=== PATIENT | female | born 1975 | race Caucasian/White ===

== ENCOUNTER 2016-12-07 06:50 | Emergency (ER) | payer MEDICAID, OTHER ==
[~2016-12-07 06:50] MED LIST: CYCL-36 PO; LORT5TAB PO; Z.0.NO CURRENT MEDS
[2016-12-07 06:51] VITALS: BP 177/95; PULSE 82; RESP 16; TEMP 98.7; O2SAT 96
--- NOTE | 2016-12-07 07:14 | PD ---
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 comes to ed with low back pain, denies any urinary/fecal incontinence, denies fever/n/ v/d/abd pain but does state a left flank like pain radiating towards groin area/ suprapubic area. PFSH Past Medical History Diminished Hearing: No Musculoskeletal: Yes (HX DEGENERATIVE DISC DISEASE) ?: Not Menopausal: Yes Past Surgical History Abdominal Surgery: Yes (C SECTION) Section: Yes (X1) Cholecystectomy: Yes Hysterectomy: Yes Social History Alcohol Use: No Tobacco Use: Yes (1/2 PPD) Substance Use: No Allergies-Medications (Allergen,Severity, Reaction): Coded Allergies: No Known Allergies (Verified , 12/07/16) Reported Meds & Prescriptions Reported Meds & Active Scripts Active No Active Prescriptions or Reported Medications Review of Systems Except as stated in HPI: all other systems reviewed are Neg Musculoskeletal: Positive: Pain (low back pain) Physical Exam Narrative GENERAL: SKIN: Warm and dry. HEAD: Atraumatic. Normocephalic. EYES: Pupils equal and round. No scleral icterus. No injection or drainage. ENT: No nasal bleeding or discharge. Mucous membranes pink and moist. NECK: Trachea midline. No JVD. CARDIOVASCULAR: Regular rate and rhythm. RESPIRATORY: No accessory muscle use. Clear to auscultation. Breath sounds equal bilaterally. GASTROINTESTINAL: Abdomen soft, non-tender, nondistended. Hepatic and splenic margins not palpable. MUSCULOSKELETAL: Extremities without clubbing, cyanosis, or edema. No obvious deformities.LOW BACK PAIN WITH SOME LATERAL PARASPINAL SPASMS, BUT NO MIDLINE TTP NEUROLOGICAL: Awake and alert. No obvious cranial nerve deficits. Motor grossly within normal limits. Five out of 5 muscle strength in the arms and legs. Normal speech. PSYCHIATRIC: Appropriate mood and affect; insight and judgment normal. Data Data Last Documented VS Vital Signs Date Time Temp Pulse Resp B/P Pulse Ox O2 Delivery O2 Flow Rate FiO2 12/07/16 06:51 98.7 82 16 177/95 96 Room Air Orders Urinalysis - C+S If Indicated (12/07/16 07:08) Ct Abd/Pel W/O Iv Contrast (12/07/16 07:08) Ed Urine Pregnancytest Poc (12/07/16 07:08) Drug Screen, Random Urine (12/07/16 07:08) Ondansetron Odt (Zofran Odt) (12/07/16 07:15) Nalbuphine Inj (Nubain Inj) (12/07/16 07:15) Labs Laboratory Tests Test 12/07/16 07:15 Urine Color YELLOW Urine Turbidity HAZY Urine pH 5.5 Urine Specific [place] 1.029 Urine Protein 30 mg/dL Urine Glucose (UA) NEG mg/dL Urine Ketones NEG mg/dL Urine Occult Blood NEG Urine Nitrite NEG Urine Bilirubin NEG Urine Urobilinogen 2.0 MG/DL Urine Leukocyte Esterase SMALL Urine RBC 1 /hpf Urine WBC 3 /hpf Urine Squamous Epithelial 5 /hpf Cells Urine Bacteria RARE /hpf Urine Hyaline Casts 9 /lpf Urine Granular Casts 1 /lpf Urine Mucus MOD /lpf Microscopic Urinalysis Comment CULT NOT INDICATED Urine Opiates Screen NEG Urine Barbiturates Screen NEG Urine Amphetamines Screen NEG Urine Benzodiazepines Screen NEG Urine Cocaine Screen NEG Urine Cannabinoids Screen NEG MDM Medical Decision Making Medical Screen Exam Complete: Yes Emergency Medical Condition: Yes Medical Record Reviewed: Yes Differential Diagnosis UTI/PYELO/RENAL STONE/DIVERTIC/ VS BACK SPASM Narrative Course PATIENT IMPROVED PAIN AFTER STADOL/ZOFRAN, CT A/P SHOWS Diagnosis Primary Impression: Low back pain Qualified Code: M54.5 - Chronic low back pain without sciatica, unspecified back pain laterality Med/Other Pt SpecificInfo: Prescription(s) given Scripts Codeine-Acetaminophen 30-300 mg Tab1 Tab PO Q4H PRN (PAIN) #20 TAB Prov:Shorty Currie MD 12/07/16 Cyclobenzaprine (Flexeril)10 Mg Tab10 Mg PO TID #21 TAB Prov:Shorty Currie MD 12/07/16 Disposition: 01 DISCHARGE HOME Condition: Stable Shorty Currie MD Dec 07, 2016 07:14
[2016-12-07] MEDS ORDERED: NALBUPHINE HCL 20 MG/ML AMP IM ONE (07:15)
[2016-12-07] MEDS ORDERED: ONDANSETRON ODT 4 MG TAB PO ONE (07:15)
[2016-12-07 07:27] LABS: BACTERIA, URINE RARE /hpf; BLOOD, URINE NEG (NEG); GLUCOSE,URINE NEG (NEG); GRANULAR CAST, URINE 1 /lpf; HYALINE CAST, URINE 9 /lpf (RARE); KETONE, URINE NEG (NEG); MUCUS URINE MOD /lpf (OCC); NITRITE,URINE NEG (NEG); PH, URINE 5.5 (5.0-8.5); SQUAMOUS EPITHELIAL CELL URINE 5 /hpf (0-5); URINE COLOR YELLOW (YELLW/STRAW)
[2016-12-07 07:30] LABS: COMMENT (UR) CULT NOT INDICATED; CULTURE IF INDICATED CULT NOT INDICATED
[2016-12-07 07:32] LABS: AMPHETAMINE, URINE NEG (NEG); BARBITURATES, URINE NEG (NEG); COCAINE, URINE NEG (NEG)
--- NOTE | 2016-12-07 07:48 | RADRPT ---
EXAM DATE/TIME: 12/07/2016 07:30 [facility] COMPARISON: No previous studies available for comparison. INDICATIONS : Complaining of back pain. ORAL CONTRAST: No oral contrast ingested. RADIATION DOSE: 8.54 CTDIvol (mGy) MEDICAL HISTORY : Back pain SURGICAL HISTORY : Hysterectomy. Cholecystectomy. ENCOUNTER: Initial ACUITY: 1 day PAIN SCALE: 6/10 LOCATION: Bilateral lower back TECHNIQUE: Volumetric scanning of the abdomen and pelvis was performed. Using automated exposure control and ad justment of the mA and/or kV according to patient size, radiation dose was kept as low as reasonably achievable to obtain optimal diagnostic quality images. FINDINGS: Lung bases are clear. There is hepatomegaly with liver measuring 23.8 cm in length. Fatty infiltratio n of the liver. Spleen, adrenals, kidneys and pancreas unremarkable. Previous cholecystectomy. Minima l fat stranding of the mesentery, nonspecific but can indicate mild mesenteric inflammatory changes. No free air or free fluid. No bowel obstruction. No acute bony abnormalities. Mild degenerative disc disease of the lumbar spine. CONCLUSION: 1. Fatty infiltration of the liver which is enlarged to 23.8 cm. 2. There is mild nonspecific stranding of fat in the mesentery. Differential diagnosis includes a mil d mesenteritis. 3. Previous cholecystectomy. No biliary ductal dilatation. No other acute findings within the abdomen or pelvis. Wali Hernández MD on December 07, 2016 at 7:37 Board Certified Radiologist. This report was verified electronically.
[2016-12-07] MEDS ORDERED: CYCL1TAB29 PO (07:55)
[2016-12-07] MEDS ORDERED: CODE30TA2 PO (07:55)
[2016-12-07] MEDS ORDERED: ORPHENADRINE INJ 60 MG/2 ML AMP IM ONE (08:00)
[2016-12-07] MEDS ORDERED: KETOROLAC TROMETHAMINE 60 MG/2 ML (IM) VIAL IM ONE (08:00)
== END 2016-12-07 08:20 | disposition home or self-care (01) ==
LOC: NEPC 06:50
DX: M54.5 Low back pain (principal); K76.0 Fatty (change of) liver, not elsewhere classified; F17.200 Nicotine dependence, unspecified, uncomplicated
CPT/HCPCS: 74176; 80307; 81001; 84703; 96372; 99285; J1885; J2360

== ENCOUNTER 2016-12-09 13:59 | Emergency (ER) | payer SELFPAY ==
[~2016-12-09] VITALS: Ht 157.5 cm; Wt 100.0 kg
[~2016-12-09 13:59] MED LIST changes: +CODE30TA2 PO; -CYCL-36 PO; +CYCL1TAB29 PO; -LORT5TAB PO; -Z.0.NO CURRENT MEDS
[2016-12-09 14:01] VITALS: BP 141/102; PULSE 88; RESP 19; TEMP 98; O2SAT 99
--- NOTE | 2016-12-09 15:04 | PD ---
HPI Chief Complaint: Back/ Neck Pain or Injury Time Seen by Provider: 15:03 Travel History International Travel<30 days: No Contact w/Intl Traveler<30days: No Traveled to known affect area: No History of Present Illness HPI 41-year-old female presents to emergency Department with complaint of mid and left lower back pain since Thursday. Was seen here on Thursday with the same complaint. Pain does radiate down the back of left buttocks and thigh. Returns saying that pain is worsened. Denies history of back pain. Denies injury. Says she had incontinence of stool on Thursday prior to arrival to the ER and had to go home and clean herself up before coming back to be evaluated. She states that she did not mention this incident to the doctor. Denies further incontinence of stool or urine. She is also complaining of "a little "numbness/tingling in her genital area. Denies IV drug use or cancer. Denies fever, vomiting. Denies paresthesias, loss of sensation, decreased range of motion, decreased strength to all extremities. Has been taking Tylenol with codeine as prescribed with no relief back pain. Was unable to fill the Flexeril due to finances. Pain is worse with movement. History of hysterectomy. No known allergies. Has no other medical complaints. No other modifying factors or associated signs and symptoms. PFSH Past Medical History Diminished Hearing: No Musculoskeletal: Yes (HX DEGENERATIVE DISC DISEASE) ?: Not Menopausal: Yes Past Surgical History Abdominal Surgery: Yes (C SECTION) Section: Yes (X1) Cholecystectomy: Yes Hysterectomy: Yes Social History Alcohol Use: No Tobacco Use: Yes (1/2 PPD) Substance Use: No Allergies-Medications (Allergen,Severity, Reaction): Coded Allergies: No Known Allergies (Verified , 12/09/16) Reported Meds & Prescriptions Reported Meds & Active Scripts Active Codeine-Acetaminophen 30-300 mg Tab 1 Tab PO Q4H PRN Flexeril (Cyclobenzaprine HCl) 10 Mg Tab 10 Mg PO TID Review of Systems Except as stated in HPI: all other systems reviewed are Neg Physical Exam Narrative GENERAL: Well-nourished, well-developed female patient, in no acute distress; afebrile, nontoxic-appearing SKIN: Warm and dry. HEAD: Atraumatic. Normocephalic. EYES: Pupils equal and round. No scleral icterus. No injection or drainage. ENT: Mucosa pink and moist. Airway patent. NECK: Trachea midline. CARDIOVASCULAR: Regular rate. RESPIRATORY: No accessory muscle use. GASTROINTESTINAL: Rounded. RECTUM: Rectal tone normal. MUSCULOSKELETAL: Bilateral lower extremities supple and non-tense with 2+ pedal pulses and sensory intact; with full range of motion and 5/5 strength. 2 + DTRs bilaterally. Active dorsiflexion and extension of bilateral feet. Bilateral straight leg raise is negative for low back pain. Ambulatory in room with with guarded gait the left lower extremity. Sitting up in bed at 90. No obvious deformities. No clubbing. No cyanosis. No edema. BACK: Midline point tenderness on palpation of the lumbar spine. Tenderness on palpation of left lumbar iliosacral area. No obvious deformities. NEUROLOGICAL: Awake and alert. Oriented 3. No obvious cranial nerve deficits. Motor grossly within normal limits. Normal speech. Moves all extremities. 5/5 strength to all extremities. Sensory intact. PSYCHIATRIC: Appropriate mood and affect; insight and judgment normal. Data Data Last Documented VS Vital Signs Date Time Temp Pulse Resp B/P Pulse Ox O2 Delivery O2 Flow Rate FiO2 12/09/16 17:31 63 19 112/72 98 Room Air 12/09/16 14:01 98.0 Orders Complete Blood Count With Diff (12/09/16 15:17) Comprehensive Metabolic Panel (12/09/16 15:17) Prothrombin Time / Inr (Pt) (12/09/16 15:17) Act Partial Throm Time (Ptt) (12/09/16 15:17) Iv Access Insert/Monitor (12/09/16 15:17) Sodium Chloride 0.9% Flush (Ns Flush) (12/09/16 15:30) Urinalysis - C+S If Indicated (12/09/16 15:17) Ed Urine Pregnancytest Poc (12/09/16 15:17) Westergren Sedimentation Rate (12/09/16 15:22) Ketorolac Inj (Toradol Inj) (12/09/16 16:15) Mri C Spine W/O Contrast (12/09/16 ) Mri L Spine W/O Contrast (12/09/16 ) Mri T Spine W/O Contrast (12/09/16 ) Labs Laboratory Tests Test 12/09/16 15:30 White Blood Count 10.1 TH/MM3 Red Blood Count 5.01 MIL/MM3 Hemoglobin 15.4 GM/DL Hematocrit 44.3 % Mean Corpuscular Volume 88.5 FL Mean Corpuscular Hemoglobin 30.7 PG Mean Corpuscular Hemoglobin 34.7 % Concent Red Cell Distribution Width 13.2 % Platelet Count 287 TH/MM3 Mean Platelet Volume 9.3 FL Neutrophils (%) (Auto) 61.7 % Lymphocytes (%) (Auto) 31.0 % Monocytes (%) (Auto) 5.8 % Eosinophils (%) (Auto) 1.1 % Basophils (%) (Auto) 0.4 % Neutrophils # (Auto) 6.2 TH/MM3 Lymphocytes # (Auto) 3.1 TH/MM3 Monocytes # (Auto) 0.6 TH/MM3 Eosinophils # (Auto) 0.1 TH/MM3 Basophils # (Auto) 0.0 TH/MM3 CBC Comment DIFF FINAL Differential Comment Prothrombin Time 10.0 SEC Prothromb Time International 0.9 RATIO Ratio Activated Partial 26.0 SEC Thromboplast Time Urine Color YELLOW Urine Turbidity HAZY Urine pH 5.0 Urine Specific [place] 1.024 Urine Protein TRACE mg/dL Urine Glucose (UA) NEG mg/dL Urine Ketones NEG mg/dL Urine Occult Blood TRACE Urine Nitrite NEG Urine Bilirubin NEG Urine Urobilinogen LESS THAN 2.0 MG/DL Urine Leukocyte Esterase MOD Urine RBC 2 /hpf Urine WBC 6 /hpf Urine Squamous Epithelial 5 /hpf Cells Urine Mucus FEW /lpf Microscopic Urinalysis Comment CULT NOT INDICATED Sodium Level 141 MEQ/L Potassium Level 4.2 MEQ/L Chloride Level 106 MEQ/L Carbon Dioxide Level 27.8 MEQ/L Anion Gap 7 MEQ/L Blood Urea Nitrogen 19 MG/DL Creatinine 1.06 MG/DL Estimat Glomerular Filtration 57 ML/MIN Rate Random Glucose 84 MG/DL Calcium Level 9.1 MG/DL Total Bilirubin 0.3 MG/DL Aspartate Amino Transf 41 U/L (AST/SGOT) Alanine Aminotransferase 68 U/L (ALT/SGPT) Alkaline Phosphatase 81 U/L Total Protein 8.0 GM/DL Albumin 3.9 GM/DL [facility] Medical Decision Making Medical Screen Exam Complete: Yes Emergency Medical Condition: Yes Medical Record Reviewed: Yes Differential Diagnosis Cord compression, spinal abscess, sciatica Narrative Course 41-year-old female with mid and left-sided low back pain since Thursday. Denies injury. Patient was examined here at [facility] on Thursday and had a CT of her abdomen and urinalysis were unremarkable for acute findings. Patient returns today with complaint of worsening of back pain. She does report having incontinence of stool on Thursday prior to arrival to the ER but did not discuss this with the doctor at that time. She has not had any further incontinence of stool or urine. She reports saddle anesthesias. Patient does have midline tenderness on palpation of the lumbar spine. She is afebrile and nontoxic- appearing. Denies fever, vomiting. Denies IV drug use or cancer. Patient is ambulatory in the room with a guarded gait the left lower extremity. I discussed the patient with Dr. frank, my attending physician, and he recommended CBC, CMP, sedimentation rate, coags and MRI of the spine. Orders are entered including urinalysis and urine . Patient will be transferred to a medical bed for further treatment and evaluation. Report will be given to alternate provider. See their note for patient disposition. 1715: Report given to Dr. Mills. See his note for final disposition. Lilly Zhang Dec 09, 2016 15:04
[2016-12-09] MEDS ORDERED: SODIUM CHLORIDE 0.9% FLUSH 10 ML FLUSH IV FLUSH PRN (15:30)
[2016-12-09 16:04] LABS: AUTOMATED NEUTROPHIL # 6.2 TH/MM3 (1.8-7.7); BASOPHIL % 0.4 % (0.0-2.0); EOSINOPHIL # 0.1 TH/MM3 (0-0.4); EOSINOPHIL % 1.1 % (0.0-4.0); HEMATOCRIT 44.3 % (35.0-46.0); HEMO FLAGS DIFF FINAL; LYMPHOCYTE # 3.1 TH/MM3 (1.0-4.8); MEAN CELL VOLUME 88.5 FL (80.0-100.0); MEAN CORPUSCULAR HEMOGLOBIN 30.7 PG (27.0-34.0); MEAN CORPUSCULAR HGB CONC 34.7 % (32.0-36.0); MONO % 5.8 % (0.0-8.0); NEUT % 61.7 % (16.0-70.0); PLATELET COUNT 287 TH/MM3 (150-450); RED BLOOD COUNT 5.01 MIL/MM3 (4.00-5.30); RED CELL DISTRIBUTION WIDTH 13.2 % (11.6-17.2); WHITE BLOOD COUNT 10.1 TH/MM3 (4.0-11.0)
[2016-12-09 16:10] LABS: BLOOD, URINE TRACE (NEG); COMMENT (UR) CULT NOT INDICATED; CULTURE IF INDICATED CULT NOT INDICATED; GLUCOSE,URINE NEG (NEG); KETONE, URINE NEG (NEG); MUCUS URINE FEW /lpf (OCC); NITRITE,URINE NEG (NEG); SQUAMOUS EPITHELIAL CELL URINE 5 /hpf (0-5); URINE COLOR YELLOW (YELLW/STRAW)
[2016-12-09] MEDS ORDERED: KETOROLAC TROMETHAMINE 30 MG/ML (IVP) VIAL IV PUSH ONE (16:15)
[2016-12-09 16:22] LABS: ALT (GPT) 68 U/L (10-53); ANION GAP 7 MEQ/L (5-15); AST (GOT) 41 U/L (15-37); BICARBONATE 27.8 MEQ/L (21.0-32.0); BLOOD UREA NITROGEN 19 MG/DL (7-18); CHLORIDE 106 MEQ/L (98-107); GLOMERULAR FILTRATION RATE 57 ML/MIN (>89); POTASSIUM 4.2 MEQ/L (3.5-5.1); SODIUM (NA) 141 MEQ/L (136-145)
[2016-12-09 16:25] LABS: ALKALINE PHOSPHATASE 81 U/L (45-117); TOTAL BILIRUBIN ADULT 0.3 MG/DL (0.2-1.0)
[2016-12-09 16:28] LABS: INTERNATIONAL NORMALIZED RATIO 0.9 RATIO
[2016-12-09 17:31] VITALS: BP 112/72; PULSE 63; RESP 19; O2SAT 98
--- NOTE | 2016-12-09 18:24 | RADRPT ---
EXAM DATE/TIME: 12/09/2016 17:46 [facility] COMPARISON: No previous studies available for comparison. INDICATIONS : Left flank pain with left leg pain. MEDICAL HISTORY : None. SURGICAL HISTORY : Hysterectomy. Cholecystectomy. section. ENCOUNTER: Initial ACUITY: 4-6 days PAIN SCORE: 6/10 LOCATION: Left back. TECHNIQUE: Multiplanar multisequence MRI of the thoracic spine was performed. FINDINGS: VERTEBRA: Normal vertebral body height. Homogeneous marrow signal. ALIGNMENT: Normal. CORD: Normal position and configuration. T1-T2: Normal. T2-T3: The thecal sac has a normal diameter. No evidence of disc bulge or protrusion. T3-T4: The thecal sac has a normal diameter. No evidence of disc bulge or protrusion. T4-T5: The thecal sac has a normal diameter. No evidence of disc bulge or protrusion. T5-T6: The thecal sac has a normal diameter. No evidence of disc bulge or protrusion. T6-T7: The thecal sac has a normal diameter. No evidence of disc bulge or protrusion. T7-T8: The thecal sac has a normal diameter. No evidence of disc bulge or protrusion. T8-T9: The thecal sac has a normal diameter. No evidence of disc bulge or protrusion. T9-T10: The thecal sac has a normal diameter. No evidence of disc bulge or protrusion. T10-T11: Moderate degenerative disc disease with minimal posterior ossific ridging. The thecal sac has a monse l diameter. No evidence of disc bulge or protrusion. T11-T12: The thecal sac has a normal diameter. No evidence of disc bulge or protrusion. T12-L1: The thecal sac has a normal diameter. No evidence of disc bulge or protrusion. CONCLUSION: 1. No acute findings. Moderate degenerative change at T10-11. Mild degenerative change the remainder of the thoracic spine. No canal stenosis. No cord impingement or cord edema. Wali Hernández MD on December 09, 2016 at 18:20 Board Certified Radiologist. This report was verified electronically.
--- NOTE | 2016-12-09 18:40 | RADRPT ---
EXAM DATE/TIME: 12/09/2016 17:46 [facility] COMPARISON: No previous studies available for comparison. INDICATIONS : Left flank pain with left leg pain. MEDICAL HISTORY : None. SURGICAL HISTORY : Hysterectomy. Cholecystectomy. section. ENCOUNTER: Initial ACUITY: 4-6 days PAIN SCORE: 5/10 LOCATION: Left back TECHNIQUE: Multiplanar, multisequence MRI examination of the cervical spine was performed. FINDINGS: VERTEBRAE: Normal vertebral body height. Homogeneous marrow signal. ALIGNMENT: No evidence of subluxation. CORD: Normal configuration and signal. POST FOSSA: The cerebellar tonsils are normal in position. C2-C3: The thecal sac has a normal configuration. There is no evidence of disc herniation or spinal canal s tenosis. The neural foramina are patent bilaterally. C3-C4: The thecal sac has a normal configuration. There is no evidence of disc herniation or spinal canal s tenosis. The neural foramina are patent bilaterally. C4-C5: The thecal sac has a normal configuration. There is no evidence of disc herniation or spinal canal s tenosis. The neural foramina are patent bilaterally. C5-C6: There is a broad-based central to left paracentral disc protrusion with effacement of anterior thecal sac and minimal posterior flexion of the cord. No significant cord compression. Mild foraminal encro achment. C6-C7: The thecal sac has a normal configuration. There is no evidence of disc herniation or spinal canal s tenosis. The neural foramina are patent bilaterally. C7-T1: The thecal sac has a normal configuration. There is no evidence of disc herniation or spinal canal s tenosis. The neural foramina are patent bilaterally. CONCLUSION: 1. At C5-6 there is a mild central to left paracentral disc protrusion effacing the anterior thecal s ac with minimal deflection of the cord posteriorly. No significant cord compression. No cord edema. N ormal alignment of the cervical spine. Wali Hernández MD on December 09, 2016 at 18:35 Board Certified Radiologist. This report was verified electronically.
--- NOTE | 2016-12-09 18:52 | RADRPT ---
EXAM DATE/TIME: 12/09/2016 17:46 [facility] COMPARISON: No previous studies available for comparison. INDICATIONS : Left flank pain with left leg pain. MEDICAL HISTORY : None. SURGICAL HISTORY : Hysterectomy. Cholecystectomy. section. ENCOUNTER: Initial ACUITY: 4-6 days PAIN SCORE: 5/10 LOCATION: Left back. TECHNIQUE: Multiplanar multisequence MRI of the lumbar spine was performed without contrast. FINDINGS: The most caudal appearing lumbar vertebra is numbered as L5. VERTEBRAE: Homogeneous signal. Normal alignment. CONUS: Normal level and configuration. T12-L1: The thecal sac has a normal diameter. No evidence of disc bulge or protrusion. The neural foramina are patent bilaterally. L1-L2: The thecal sac has a normal diameter. No evidence of disc bulge or protrusion. The neural foramina are patent bilaterally. L2-L3: The thecal sac has a normal diameter. No evidence of disc bulge or protrusion. The neural foramina are patent bilaterally. L3-L4: The thecal sac has a normal diameter. No evidence of disc bulge or protrusion. The neural foramina are patent bilaterally. L4-L5: The thecal sac has a normal diameter. No evidence of disc bulge or protrusion. The neural foramina are patent bilaterally. L5-S1: The thecal sac has a normal diameter. No evidence of disc bulge or protrusion. The neural foramina are patent bilaterally. CONCLUSION: Normal examination for a patient of this age. Wali Hernández MD on December 09, 2016 at 18:48 Board Certified Radiologist. This report was verified electronically.
[2016-12-09] MEDS ORDERED: MORPHINE SULFATE 4 MG/ML INJ IV PUSH ONE (19:15)
[2016-12-09 19:19] VITALS: BP 143/80; PULSE 77; RESP 20; O2SAT 99
[2016-12-09] MEDS ORDERED: MELO7.5T4 PO (19:19)
--- NOTE | 2016-12-09 19:19 | PD ---
Data Data Last Documented VS Vital Signs Date Time Temp Pulse Resp B/P Pulse Ox O2 Delivery O2 Flow Rate FiO2 12/09/16 17:31 63 19 112/72 98 Room Air 12/09/16 14:01 98.0 Orders Complete Blood Count With Diff (12/09/16 15:17) Comprehensive Metabolic Panel (12/09/16 15:17) Prothrombin Time / Inr (Pt) (12/09/16 15:17) Act Partial Throm Time (Ptt) (12/09/16 15:17) Iv Access Insert/Monitor (12/09/16 15:17) Sodium Chloride 0.9% Flush (Ns Flush) (12/09/16 15:30) Urinalysis - C+S If Indicated (12/09/16 15:17) Ed Urine Pregnancytest Poc (12/09/16 15:17) Westergren Sedimentation Rate (12/09/16 15:22) Ketorolac Inj (Toradol Inj) (12/09/16 16:15) Mri C Spine W/O Contrast (12/09/16 ) Mri L Spine W/O Contrast (12/09/16 ) Mri T Spine W/O Contrast (12/09/16 ) Morphine Inj (Morphine Inj) (12/09/16 19:15) Labs Laboratory Tests Test 12/09/16 15:30 White Blood Count 10.1 TH/MM3 Red Blood Count 5.01 MIL/MM3 Hemoglobin 15.4 GM/DL Hematocrit 44.3 % Mean Corpuscular Volume 88.5 FL Mean Corpuscular Hemoglobin 30.7 PG Mean Corpuscular Hemoglobin 34.7 % Concent Red Cell Distribution Width 13.2 % Platelet Count 287 TH/MM3 Mean Platelet Volume 9.3 FL Neutrophils (%) (Auto) 61.7 % Lymphocytes (%) (Auto) 31.0 % Monocytes (%) (Auto) 5.8 % Eosinophils (%) (Auto) 1.1 % Basophils (%) (Auto) 0.4 % Neutrophils # (Auto) 6.2 TH/MM3 Lymphocytes # (Auto) 3.1 TH/MM3 Monocytes # (Auto) 0.6 TH/MM3 Eosinophils # (Auto) 0.1 TH/MM3 Basophils # (Auto) 0.0 TH/MM3 CBC Comment DIFF FINAL Differential Comment Prothrombin Time 10.0 SEC Prothromb Time International 0.9 RATIO Ratio Activated Partial 26.0 SEC Thromboplast Time Urine Color YELLOW Urine Turbidity HAZY Urine pH 5.0 Urine Specific [place] 1.024 Urine Protein TRACE mg/dL Urine Glucose (UA) NEG mg/dL Urine Ketones NEG mg/dL Urine Occult Blood TRACE Urine Nitrite NEG Urine Bilirubin NEG Urine Urobilinogen LESS THAN 2.0 MG/DL Urine Leukocyte Esterase MOD Urine RBC 2 /hpf Urine WBC 6 /hpf Urine Squamous Epithelial 5 /hpf Cells Urine Mucus FEW /lpf Microscopic Urinalysis Comment CULT NOT INDICATED Sodium Level 141 MEQ/L Potassium Level 4.2 MEQ/L Chloride Level 106 MEQ/L Carbon Dioxide Level 27.8 MEQ/L Anion Gap 7 MEQ/L Blood Urea Nitrogen 19 MG/DL Creatinine 1.06 MG/DL Estimat Glomerular Filtration 57 ML/MIN Rate Random Glucose 84 MG/DL Calcium Level 9.1 MG/DL Total Bilirubin 0.3 MG/DL Aspartate Amino Transf 41 U/L (AST/SGOT) Alanine Aminotransferase 68 U/L (ALT/SGPT) Alkaline Phosphatase 81 U/L Total Protein 8.0 GM/DL Albumin 3.9 GM/DL [facility] [place] Supervised Visit with ESHA: Yes Interpretation(s) Last 24 hours Impressions Thoracic Spine MRI 12/09/16 0000 Signed Impressions: Service Date/Time: Friday, December 09, 2016 17:46 - CONCLUSION: 1. No acute findings. Moderate degenerative change at T10-11. Mild degenerative change the remainder of the thoracic spine. No canal stenosis. No cord impingement or cord edema. Wali Hernández MD Lumbar Spine MRI 12/09/16 0000 Signed Impressions: Service Date/Time: Friday, December 09, 2016 17:46 - CONCLUSION: Normal examination for a patient of this age. Wali Hernández MD Cervical Spine MRI 12/09/16 0000 Signed Impressions: Service Date/Time: Friday, December 09, 2016 17:46 - CONCLUSION: 1. At C5-6 there is a mild central to left paracentral disc protrusion effacing the anterior thecal sac with minimal deflection of the cord posteriorly. No significant cord compression. No cord edema. Normal alignment of the cervical spine. Wali Hernández MD Narrative Course The history, exam, and medical decision-making in the associated mid-level provider note were completed with my assistance. I reviewed and agree with the findings presented. I attest that I had a [id number] encounter with the patient on the same day, and personally performed and documented my assessment and findings in the medical record. *My assessment and Findings: 41 year-old woman, acute on chronic back pain with sciatica. She was reporting concerning symptoms of saddle anesthesia and bilateral weakness. MRI does show no evidence of cauda equina. She is stable for discharge. Diagnosis Primary Impression: Low back pain Additional Instruction: Take meloxicam as prescribed as needed for pain. Follow-up with her primary doctor in the next 2-4 days. Med/Other Pt SpecificInfo: Prescription(s) given Scripts Meloxicam 7.5 Mg Tab15 Mg PO DAILY 14 Days Prov:Jm Mills MD 12/09/16 Disposition: 01 DISCHARGE HOME Condition: Stable Jm Mills MD Dec 09, 2016 19:19
== END 2016-12-09 20:49 | disposition home or self-care (01) ==
LOC: NEPC 13:59
DX: M54.5 Low back pain (principal); M54.42 Lumbago with sciatica, left side; G89.29 Other chronic pain; R20.0 Anesthesia of skin; R15.9 Full incontinence of feces; F17.200 Nicotine dependence, unspecified, uncomplicated; Z87.39 Personal history of other diseases of the musculoskeletal system and connective tissue
CPT/HCPCS: 72141; 72146; 72148; 80053; 81001; 84703; 85025; 85610; 85730; 96374; 96375; 99285; J1885; J2270